=== PATIENT | female | born 1995 | race Caucasian/White ===

== ENCOUNTER 2018-11-09 20:51 | Emergency (ER) | payer BC ==
[2018-11-09] MEDS ORDERED: diphenhydrAMINE 50 MG/ML SDV IM ONE (21:02)
[2018-11-09] MEDS ORDERED: SUMAtriptan 6 MG/0.5 ML SDV SUBCUT ONE (21:02)
[2018-11-09] MEDS ORDERED: Ondansetron 4 MG/2 ML SDV IM ONE (21:02)
--- NOTE | 2018-11-09 21:13 | EDM.PDOC ---
ED HPI GENERAL MEDICAL PROBLEM - General Chief Complaint: Headache Stated Complaint: MIGRAINE Time Seen by Provider: 11/09/18 20:54 Source of Information: Reports: Patient History Limitations: Reports: No Limitations - History of Present Illness INITIAL COMMENTS - FREE TEXT/NARRATIVE: Patient presents with complaints of left sided migraine headache. She states she has had it over the last couple of days intermittently but today at around 4 pm it has not relented. She does have toradol at home that she is to take when she feels it is starting to come on. She did take this but it was not effective. She is requesting morphine. She states her headache is throbbing/ pulsating to the left mu-ism area. This is a usual type of headache for her. No neurologic deficits noted. Lights and sounds make it worse. She also has some nausea. She has some neck pain as well. No recent illness, no fever, no chills, no cough. Denies chest pain, shortness of breath, has full ROM of her neck. No abdominal pain. Denies recent drug use, no recent drinking alcohol. Denies smoking or excessive caffeine use. Onset: Today, Gradual Duration: Getting Worse Location: Reports: Head Quality: Reports: Throbbing Severity: Mild Improves with: Reports: None Worsens with: Reports: Other Associated Symptoms: Reports: Nausea/Vomiting - Related Data Allergies Allergy/AdvReac Type Severity Reaction Status Date / Time No Known Allergies Allergy Verified 05/05/15 01:12 Home Meds: Home Meds Levonorgestrel-Ethin Estradiol [Aviane-28 Tablet] 1 tab PO DAILY 12/26/15 [ History] Ketorolac [Toradol] 10 mg PO ONETIME PRN 05/31/17 [History] Levonorgestrel-Ethin Estradiol [Falmina-28 Tablet] 1 each PO DAILY 05/31/17 [ History] Past Medical History - Past Health History Medical/Surgical History: Denies Medical/Surgical History Neurological History: Reports: Migraines Social & Family History - Family History Family Medical History: Noncontributory ED ROS GENERAL - Review of Systems Review Of Systems: See Below Constitutional: Reports: No Symptoms HEENT: Reports: No Symptoms Respiratory: Reports: No Symptoms Cardiovascular: Reports: No Symptoms Endocrine: Reports: No Symptoms GI/Abdominal: Reports: No Symptoms : Reports: No Symptoms Musculoskeletal: Reports: No Symptoms Skin: Reports: No Symptoms Neurological: Reports: Headache Psychiatric: Reports: No Symptoms Hematologic/Lymphatic: Reports: No Symptoms Immunologic: Reports: No Symptoms - Physical Exam Exam: See Below Exam Limited By: No Limitations General Appearance: Alert, WD/WN, No Apparent Distress Eye Exam: Bilateral Eye: EOMI, Normal Inspection Ears: Normal External Exam, Normal Canal, Hearing Grossly Normal, Normal TMs Nose: Normal Inspection, Normal Mucosa, No Blood Throat/Mouth: Normal Inspection, Normal Lips, Normal Teeth, Normal Gums, Normal Oropharynx, Normal Voice, No Airway Compromise Head Exam: Atraumatic, Normocephalic Neck: Normal Inspection, Supple, Non-Tender, Full Range of Motion Respiratory/Chest: No Respiratory Distress, Lungs Clear, Normal Breath Sounds, No Accessory Muscle Use, Chest Non-Tender Cardiovascular: Normal Peripheral Pulses, Regular Rate, Rhythm, No Edema, No Gallop, No JVD, No Murmur, No Rub GI/Abdominal: Normal Bowel Sounds, Soft, Non-Tender, No Organomegaly, No Distention, No Abnormal Bruit, No Mass Neuro Exam (Abbreviated): Alert, Oriented, CN II-XII Intact, Normal Cognition, Normal Gait, Normal Reflexes, No Motor/Sensory Deficits Back Exam: Normal Inspection, Full Range of Motion, NT Extremities: Normal Inspection, Normal Range of Motion, Non-Tender, No Pedal Edema, Normal Capillary Refill Psychiatric: Normal Affect, Normal Mood Skin Exam: Warm, Dry, Intact, Normal Color, No Rash Course - Orders/Labs/Meds Orders: Active Orders 24 hr Category Date Time Status Ondansetron [Zofran] Med 11/09/18 21:02 Once 4 mg IM ONETIME ONE SUMAtriptan [Imitrex] Med 11/09/18 21:02 Once 6 mg SUBCUT ONETIME ONE chlorproMAZINE [Thorazine] Med 11/09/18 21:02 Once 25 mg IM ONETIME ONE diphenhydrAMINE [Benadryl] Med 11/09/18 21:02 Once 25 mg IM ONETIME ONE - Re-Assessments/Exams Free Text/Narrative Re-Assessment/Exam: 11/09/18 22:05 6 mg SQ Sumatriptan given. Headache has resolved. Patient stable while under my care in the ED Departure - Departure Time of Disposition: 22:05 Disposition: Home, Self-Care 01 Condition: Good Clinical Impression: Migraine - Discharge Information *PRESCRIPTION DRUG MONITORING PROGRAM REVIEWED*: Not Applicable *COPY OF PRESCRIPTION DRUG MONITORING REPORT IN PATIENT HARRIS: Not Applicable Instructions: Migraine Headache, [id number] Forms: ED Department Discharge Additional Instructions: Plan 1. Stay well hydrated 2. Talk with your primary provider regarding getting some Sumatriptan. This is what you took this evening that helped your headache. 3. Start a diary to keep track of possible triggers. 4. Follow up as necessary with primary care. 5. Please call anytime with questions or concerns. - Problem List & Annotations (1) Migraine SNOMED Code(s): 72192648 Code(s): G43.909 - MIGRAINE, UNSP, NOT INTRACTABLE, WITHOUT STATUS MIGRAINOSUS Status: Acute Priority: Low - Problem List Review Problem List Initiated/Reviewed/Updated: Yes - My Orders Last 24 Hours: My Active Orders 11/09/18 21:02 Ondansetron [Zofran] 4 mg IM ONETIME ONE SUMAtriptan [Imitrex] 6 mg SUBCUT ONETIME ONE chlorproMAZINE [Thorazine] 25 mg IM ONETIME ONE diphenhydrAMINE [Benadryl] 25 mg IM ONETIME ONE - Assessment/Plan Last 24 Hours: My Active Orders 11/09/18 21:02 Ondansetron [Zofran] 4 mg IM ONETIME ONE SUMAtriptan [Imitrex] 6 mg SUBCUT ONETIME ONE chlorproMAZINE [Thorazine] 25 mg IM ONETIME ONE diphenhydrAMINE [Benadryl] 25 mg IM ONETIME ONE Assessment:: recurrent migraine Plan: Plan 1. Stay well hydrated 2. Talk with your primary provider regarding getting some Sumatriptan. This is what you took this evening that helped your headache. 3. Start a diary to keep track of possible triggers. 4. Follow up as necessary with primary care. 5. Please call anytime with questions or concerns.
[2018-11-10 00:08] VITALS: BP 142/93
== END 2018-11-09 22:05 | disposition home or self-care (01) ==
LOC: VM.ED 20:51
DX: G43.909 Migraine, unspecified, not intractable, without status migrainosus (principal); Z79.899 Other long term (current) drug therapy
CPT/HCPCS: 96372; 99283; J3030

== ENCOUNTER 2018-11-28 18:06 | Emergency (ER) | payer BC ==
[2018-11-28 18:18] VITALS: BP 136/86
[2018-11-28] MEDS ORDERED: Ketorolac 60 MG/2 ML SDV IM ONE (18:19)
[2018-11-28] MEDS ORDERED: Ondansetron 4 MG/2 ML SDV IM ONE (18:25)
--- NOTE | 2018-11-28 18:26 | EDM.PDOC ---
ED HPI GENERAL MEDICAL PROBLEM - General Chief Complaint: Headache Stated Complaint: MIGRAINE Time Seen by Provider: 11/28/18 18:15 Source of Information: Reports: Patient History Limitations: Reports: No Limitations - History of Present Illness INITIAL COMMENTS - FREE TEXT/NARRATIVE: Patient states that she started having a typical migraine headache left temporal area this morning about 11:00 she tried taking her normal Excedrin which did not alleviate any of her pain she started having nausea and has vomited twice last was about 2 pm she says her headache today is about 8 out of 10 and is her typical headache feature no changes in pattern or presentation she states she has 3-4 headaches a month and they're typically relieved with Excedrin or Toradol by mouth occasionally she has to come get a Toradol shot Her last visit here to the ER she received Toradol and Zofran and said it worked well she denies ever seeing neurology are having a CT scan of her head her mother does have a history of migraine headaches though there is no stroke history subarachnoid hemorrhage history in the family is she has had migraines for years Onset: Today Duration: Hour(s): Location: Reports: Head Quality: Reports: Dull, Throbbing Severity: Moderate Worsens with: Reports: None Treatments FIBERGLASSER: Reports: Acetaminophen, Aspirin. Denies: NSAIDS Left Headache Pain Score (Numeric/FACES): 8 - Related Data Allergies Allergy/AdvReac Type Severity Reaction Status Date / Time No Known Allergies Allergy Verified 11/28/18 18:20 Home Meds: Home Meds Ketorolac [Toradol] 10 mg PO ONETIME PRN 05/31/17 [History] Levonorgestrel-Ethin Estradiol [Falmina-28 Tablet] 1 each PO DAILY 05/31/17 [ History] Escitalopram Oxalate 10 mg PO DAILY 11/10/18 [History] Past Medical History - Past Health History Medical/Surgical History: Denies Medical/Surgical History Neurological History: Reports: Migraines Psychiatric History: Reports: Anxiety Social & Family History - Family History Family Medical History: Noncontributory ED ROS GENERAL - Review of Systems Review Of Systems: See Below Constitutional: Reports: No Symptoms. Denies: Fever, Chills, Weakness, Fatigue HEENT: Reports: No Symptoms. Denies: Dental Pain, Ear Pain, Eye Pain, Throat Pain Respiratory: Reports: No Symptoms Cardiovascular: Reports: No Symptoms Endocrine: Reports: No Symptoms GI/Abdominal: Reports: No Symptoms Musculoskeletal: Reports: No Symptoms. Denies: Neck Pain Skin: Reports: No Symptoms Neurological: Reports: Headache. Denies: Confusion, Dizziness, Numbness, Paresthesia, Tingling, Difficulty Walking, Weakness Psychiatric: Reports: No Symptoms Hematologic/Lymphatic: Reports: No Symptoms Immunologic: Reports: No Symptoms - Physical Exam Exam: See Below Exam Limited By: No Limitations General Appearance: Alert, WD/WN, No Apparent Distress Eye Exam: Bilateral Eye: Other (Normal funduscopic exam pupils equal round reactive light accommodation EOMI is intact) Ears: Normal External Exam, Normal Canal, Hearing Grossly Normal, Normal TMs Nose: Normal Inspection, Normal Mucosa, No Blood. No: Nasal Tenderness, Nasal Swelling Throat/Mouth: Normal Inspection, Normal Lips, Normal Teeth, Normal Gums, Normal Oropharynx, Normal Voice, No Airway Compromise Head Exam: Atraumatic, Normocephalic. No: Scalp Tenderness, Facial Swelling, Sinus Tenderness Neck: Normal Inspection, Supple, Non-Tender, Full Range of Motion, Other (No nuchal rigidity). No: Limited Range of Motion, Lymphadenopathy (L), Lymphadenopathy (R) Respiratory/Chest: No Respiratory Distress GI/Abdominal: Soft, Non-Tender, No Organomegaly, No Distention Neuro Exam (Abbreviated): Alert, Oriented, CN II-XII Intact, Normal Cognition, Normal Gait, No Motor/Sensory Deficits (Cranial nerves II through XII are intact 55 upper extremity lower extremity 2+ DTR positive rapid alternating movements normal Romberg patient able stand 1 foot with no problem no neurodeficits) Back Exam: Full Range of Motion Extremities: Normal Inspection, Normal Range of Motion, Non-Tender Psychiatric: Normal Affect, Normal Mood Skin Exam: Warm, Dry, Normal Color, No Rash Course - Vital Signs Last Recorded V/S: Last Vital Signs Temp 36.1 C 11/28/18 18:08 Pulse 93 11/28/18 18:08 Resp 18 11/28/18 18:08 BP 136/86 11/28/18 18:08 Pulse Ox 98 11/28/18 18:08 - Orders/Labs/Meds Orders: Active Orders 24 hr Category Date Time Status Ketorolac [Toradol] Med 11/28/18 18:19 Once 60 mg IM ONETIME ONE - Re-Assessments/Exams Free Text/Narrative Re-Assessment/Exam: 11/28/18 18:29 Patient was given 60 mg Toradol IM and Zofran 4 mg IM and will be rechecked Free Text/Narrative Re-Assessment/Exam: 11/28/18 20:09 Patient was rechecked after medications consider headache is now about a 2 out of 10 and she is ready to go to the house feels 100% better patient was educated on signs and symptoms and need to return to the emergency room she understands and states she will follow with her primary care provider Departure - Departure Time of Disposition: 20:05 Disposition: Home, Self-Care 01 Condition: Good Clinical Impression: Migraine headache - Discharge Information Referrals: PCP,Unobtain [Primary Care Provider] - - Problem List & Annotations (1) Migraine SNOMED Code(s): 45334898 Code(s): G43.909 - MIGRAINE, UNSP, NOT INTRACTABLE, WITHOUT STATUS MIGRAINOSUS Status: Acute Priority: Low Current Visit: No (2) Nausea & vomiting SNOMED Code(s): 63121249 Code(s): R11.2 - NAUSEA WITH VOMITING, UNSPECIFIED Status: Acute Current Visit: Yes - My Orders Last 24 Hours: My Active Orders 11/28/18 18:19 Ketorolac [Toradol] 60 mg IM ONETIME ONE - Assessment/Plan Last 24 Hours: My Active Orders 11/28/18 18:19 Ketorolac [Toradol] 60 mg IM ONETIME ONE Plan: Patient was instructed if anything changed or got worse to return to the emergency room patient gave verbal understanding
[2018-11-28] MEDS ORDERED: Promethazine 25 MG/ML SDV IM ONE (18:58)
[2018-11-28] MEDS ORDERED: Acetaminophen 325 MG Tab PO ONE (18:58)
== END 2018-11-28 20:08 | disposition home or self-care (01) ==
LOC: VM.ED 18:06
DX: G43.909 Migraine, unspecified, not intractable, without status migrainosus (principal); F41.9 Anxiety disorder, unspecified; Z79.899 Other long term (current) drug therapy
CPT/HCPCS: 96372; 99283; A9270-GY; J1885; J2405; J2550

== ENCOUNTER 2019-06-18 11:39 | Emergency (ER) | payer BC ==
[2019-06-18 12:00] VITALS: BP 128/69; PULSE 82
--- NOTE | 2019-06-18 12:08 | EDM.PDOC ---
ED HPI GENERAL MEDICAL PROBLEM - General Chief Complaint: General Time Seen by Provider: 06/18/19 11:55 - History of Present Illness INITIAL COMMENTS - FREE TEXT/NARRATIVE: PT dx with flu last week, was on Tamiflu w/o any relief. Continued cough. Throat Pain Score (Numeric/FACES): 6 - Related Data Allergies Allergy/AdvReac Type Severity Reaction Status Date / Time No Known Allergies Allergy Verified 06/18/19 11:49 Home Meds: Home Meds Levonorgestrel-Ethin Estradiol [Falmina-28 Tablet] 1 each PO DAILY 05/31/17 [ History] Escitalopram Oxalate 10 mg PO DAILY 11/10/18 [History] Past Medical History - Past Health History Medical/Surgical History: Denies Medical/Surgical History Neurological History: Reports: Migraines Psychiatric History: Reports: Anxiety Social & Family History - Family History Family Medical History: Noncontributory ED ROS GENERAL - Review of Systems Review Of Systems: See Below Constitutional: Reports: Malaise HEENT: Reports: No Symptoms Respiratory: Reports: Cough, Sputum Cardiovascular: Reports: No Symptoms Endocrine: Reports: No Symptoms GI/Abdominal: Reports: No Symptoms : Reports: No Symptoms Musculoskeletal: Reports: No Symptoms Skin: Reports: No Symptoms Neurological: Reports: No Symptoms Psychiatric: Reports: No Symptoms ED EXAM, GENERAL - Physical Exam Exam: See Below Exam Limited By: No Limitations General Appearance: Alert, WD/WN, No Apparent Distress Eye Exam: Bilateral Eye: PERRL Ears: Normal External Exam, Normal Canal, Hearing Grossly Normal, Normal TMs Nose: Normal Inspection, Normal Mucosa, No Blood Throat/Mouth: Normal Inspection, Normal Lips, Normal Teeth, Normal Gums, Normal Oropharynx, Normal Voice, No Airway Compromise Head: Atraumatic, Normocephalic Neck: Normal Inspection, Supple, Non-Tender, Full Range of Motion Respiratory/Chest: No Respiratory Distress, Lungs Clear, Normal Breath Sounds, No Accessory Muscle Use, Chest Non-Tender Cardiovascular: Normal Peripheral Pulses, Regular Rate, Rhythm, No Edema, No Gallop, No JVD, No Murmur, No Rub GI/Abdominal: Normal Bowel Sounds, Soft, Non-Tender, No Organomegaly, No Distention, No Abnormal Bruit, No Mass Neurological: Alert, Oriented Psychiatric: Normal Affect, Normal Mood Skin Exam: Warm, Dry, Intact, Normal Color, No Rash Course - Vital Signs Last Recorded V/S: Last Vital Signs Temp 36.1 C 06/18/19 11:40 Pulse 82 06/18/19 11:40 Resp 16 06/18/19 11:40 BP 128/69 06/18/19 11:40 Pulse Ox 95 06/18/19 11:40 Departure - Departure Time of Disposition: 12:07 Disposition: Home, Self-Care 01 Condition: Fair Clinical Impression: Flu-like symptoms - Discharge Information Instructions: Influenza, Adult, [id number]
== END 2019-06-18 12:18 | disposition home or self-care (01) ==
LOC: VM.ED 11:39
DX: R05 Cough (principal); F41.9 Anxiety disorder, unspecified; Z79.899 Other long term (current) drug therapy
CPT/HCPCS: 99283